=== PATIENT | male | born 1945 | race Caucasian/White ===

== ENCOUNTER → 2016-08-30 | Outpatient (CLI) | payer OTHER ==
[~2016-08-30] MED LIST: GLIP5TAB3 PO; METF-383 PO
[2016-08-30 09:36] LABS: MEAN CELL VOLUME 88.9 fL (80-100); MEAN CORPUSCULAR HEMOGLOBIN 31.3 pg (25-34); MEAN CORPUSCULAR HGB CONC 35.3 g/dl (32-36); MEAN PLATELET VOLUME 10.1 fL (7.4-10.4); PLATELET COUNT 184 K/uL (130-400)
[2016-08-30 10:12] LABS: ALT/SGPT 25 U/L (12-78); BLOOD UREA NITROGEN 26 mg/dl (7-18); CALCIUM 8.8 mg/dl (8.5-10.1); CARBON DIOXIDE 26 mmol/L (21-32); CHLORIDE 97 mmol/L (98-107); CHOLESTEROL 152 mg/dl (0-200); ESTIMATED AVERAGE GLUCOSE 232 mg/dl; GLUCOSE 183 mg/dl (70-99); HA1C FLAG Normal (Normal); POTASSIUM 3.9 mmol/L (3.5-5.1); SODIUM 133 mmol/L (136-145)
[2016-08-30 10:22] LABS: ALKALINE PHOSPHATASE 55 U/L (45-117); AST/SGOT 23 U/L (15-37); CHOLESTEROL/HDL RATIO 4.8; HDL CHOLESTEROL 32 mg/dl; LDL CHOLESTEROL CALCULATED 81 mg/dl; PROSTATE SPECIFIC ANTIGEN 0.344 ng/ml (0.000-4.000); TRIGLYCERIDES 196 mg/dl (0-150); VERY LOW DENSITY LIPOPROT CALC 39 mg/dl
== END | disposition home or self-care (01) ==
LOC: C.LAB 08:47
DX: E11.9 Type 2 diabetes mellitus without complications (principal); E78.5 Hyperlipidemia, unspecified; Z12.5 Encounter for screening for malignant neoplasm of prostate; R53.83 Other fatigue

== ENCOUNTER 2018-01-30 02:40 | Inpatient (IN) | payer OTHER ==
[~2018-01-30] VITALS: Ht 172.7 cm; Wt 78.1 kg
[2018-01-30] MEDS ORDERED: CEFTRIAXONE SOD INJ 1 GM ADDVIAL IV STA (03:12)
[2018-01-30 04:08] LABS: BASO % 0.3 %; BASO ABS # 0.03 K/uL (0-0.2); EOS % 0.7 %; EOS ABS # 0.08 K/uL (0-0.5); HEMATOCRIT 41.2 % (42-52); HEMOGLOBIN 14.8 g/dL (14.0-18.0); IG# 0.03 K/uL (0.00-0.02); LYMPH % 10.6 %; LYMPH ABS # 1.27 K/uL (1.2-3.4); MEAN CELL VOLUME 89.8 fL (80-100); MEAN CORPUSCULAR HEMOGLOBIN 32.2 pg (25-34); MEAN CORPUSCULAR HGB CONC 35.9 g/dl (32-36); MEAN PLATELET VOLUME 10.7 fL (7.4-10.4); MONO % 7.3 %; MONO ABS # 0.88 K/uL (0.11-0.59); NEUT % 80.8 %; NEUT ABS # 9.69 K/uL (1.4-6.5); PLATELET COUNT 176 K/uL (130-400); RED CELL DISTRIBUTION WIDTH CV 12.1 % (11.5-14.5); RED CELL DISTRIBUTION WIDTH SD 39.1 fL (36.4-46.3); WHITE BLOOD COUNT 11.98 K/uL (4.8-10.8)
[2018-01-30] MEDS ORDERED: VANCOMYCIN IV 1,000 MG in SODIUM CHLORIDE 0.9% 250ML 250 ML IV STA (04:17)
[2018-01-30] MEDS ORDERED: VANCOMYCIN CONSULT ACTIVE PRN ×2 (04:30→05:15)
[2018-01-30 04:32] LABS: ALBUMIN 3.7 gm/dl (3.4-5.0); CALCIUM 8.8 mg/dl (8.5-10.1); CREATININE 1.29 mg/dl (0.60-1.40); POTASSIUM 3.9 mmol/L (3.5-5.1); TOTAL PROTEIN 8.1 gm/dl (6.4-8.2)
--- NOTE | 2018-01-30 04:43 | EMERGENCY ROOM VISIT NOTE ---
ED Visit Note First contact with patient: 02:56 I saw this patient in conjunction with Hank Conner PA-C. I agree with his decision making and treatment plan.
[2018-01-30] MEDS ORDERED: SODIUM CHLORIDE 0.9% 1000ML 1,000 ML IV ONE (04:45)
[2018-01-30] MEDS ORDERED: ONDANSETRON INJ 2 MG/ML 2 ML VIAL IV PRN (05:15)
[2018-01-30] MEDS ORDERED: POLYETHYLENE (MIRALAX) 17 GM PACK PO PRN (05:15)
[2018-01-30] MEDS ORDERED: ACETAMINOPHEN 325 MG TAB PO PRN (05:15)
[2018-01-30] MEDS ORDERED: VANCOMYCIN IV 1,000 MG in SODIUM CHLORIDE 0.9% 250ML 250 ML IV SCH (05:15)
[2018-01-30] MEDS ORDERED: ALUMINUM/MAGNESIUM/SIMETH (MAALOX MAX) 30 ML UDC PO PRN (05:15)
[2018-01-30] MEDS ORDERED: VANCOMYCIN 1GM ED/ASU OMNICELL ONE (05:22)
[2018-01-30] MEDS ORDERED: ACETAMINOPHEN 325 MG TAB ONE (05:30)
[2018-01-30] MEDS ORDERED: CARBOHYDRATES FOR HYPOGLYCEMIA PO PRN (06:00)
[2018-01-30] MEDS ORDERED: DEXTROSE 50% 50 ML SYR IV PRN (06:00)
[2018-01-30] MEDS ORDERED: GLUCOSE 40% GEL 15 GM TUBE PO PRN (06:00)
[2018-01-30] MEDS ORDERED: GLUCAGON FOR INJ 1 MG VIAL IM PRN (06:00)
[2018-01-30] MEDS ORDERED: GLUCOSE 10 TABS/TUBE PO PRN (06:00)
[2018-01-30 06:10] VITALS: BP 165/81; PULSE 70; TEMP 36.7; O2SAT 99; BMI 26.2
--- NOTE | 2018-01-30 06:26 | HISTORY & PHYSICAL EXAMINATION ---
DATE OF ADMISSION: 01/30/2018 CHIEF COMPLAINT: Right foot cellulitis. HISTORY OF PRESENT ILLNESS: This is a 72-year-old male with past medical history significant for type 2 diabetes, comes because of right foot cellulitis. The patient just drove from [place] on Friday. After he came in he noticed some erythema in his second toe region extending to his dorsal aspect of his right foot. He went and saw his family doctor and was prescribed Keflex. He took a couple of doses, but the erythema was increasing in size and is spreading, so he came to the ER. Denies any fever, chills. Resting comfortably, hemodynamically stable. Denies any headaches, no blurred vision, no dizziness, no earache, no runny nose, no sore throat, no difficulty swallowing. No cough, no fever, no chills, no shortness of breath, no chest pain, no nausea, no vomiting, no abdominal pain. Normal bowel and bladder movements. Appetite is okay. Having lot of pain in his right foot region and is limping while walking. ALLERGIES: No known drug allergies. PAST MEDICAL HISTORY: As mentioned above. PAST SURGICAL HISTORY: Colonoscopy. MEDICATIONS: The patient is on Keflex 500 mg b.i.d., glipizide 10 mg b.i.d., metformin 850 mg p.o. b.i.d., aspirin 81 mg p.o. daily. FAMILY HISTORY: No family history on file. SOCIAL HISTORY: . No smoking history. No alcohol history. No drug abuse. REVIEW OF SYMPTOMS: As per HPI. Rest of review of symptoms negative. PHYSICAL EXAMINATION: GENERAL: Patient is of moderate built, not in distress. VITAL SIGNS: Temperature 36.4, pulse 64, respiratory rate 18, blood pressure 172/100, oxygen 98% on room air. HEENT: No pallor, no icterus. Pupils equal, round, reactive to light. NECK: No JVD, no neck masses, no carotid bruits. CARDIOVASCULAR: S1, S2 heard, regular rate and rhythm, no murmur, no gallop. RESPIRATORY SYSTEM: Clear to auscultation bilaterally. No wheezing, no crackles. ABDOMEN: Soft, bowel sounds present. Nontender. No distention. CENTRAL NERVOUS SYSTEM: Cranial nerves II-XII grossly intact. Nonfocal. EXTREMITIES: Right foot erythema seen extending from the right second toe to dorsal aspect of the foot. LABORATORY DATA: Sodium 135, potassium 3.9, chloride 103, bicarb 25, BUN 21, creatinine 1.2, serum glucose 289. Point of care lactic acid 2.7, calcium 8.8, total bilirubin 0.2, AST 19, ALT 23, alkaline phosphatase 69. WBC 11.9, hemoglobin 14.8, hematocrit 41.2, platelets 176. Foot x-ray pending. ASSESSMENT AND PLAN: This is a 72-year-old male who presents with right foot cellulitis. 1. Right foot cellulitis. Received couple of dose of Keflex, but the erythema is spreading. Recently traveled from [place]. We will start an IV vancomycin and follow the response.Will consider add gm negative coverage if no improvement Also follow the foot x-ray. Point of care lactic acid is 2.7. Will follow Repeat the lactic acid and follow results. Gentle fluids. Monitor in the medical floor. 2. Diabetes. Hold home medication of glipizide and metformin, placed in insulin sliding scale and follow HbA1c levels. 3. Hypertension, possible situational. We will monitor. 4. Deep venous thrombosis prophylaxis, Lovenox. DISPOSITION: Admit to medical floor. Expect discharge home and follow up with his family doctor. Level 1 full code. MTDD
[2018-01-30] MEDS ORDERED: PNEUMOCOCCAL POLYSACCHARIDES 25 MCG/0.5 ML VIAL/SYR IM. ONE (07:00)
[2018-01-30] MEDS ORDERED: PNEUMOCOCCAL ADMINISTRATION CHARGE ONE (07:00)
[2018-01-30] MEDS ORDERED: SODIUM CHLORIDE 0.9% 1000ML 1,000 ML IV SCH (07:00)
--- NOTE | 2018-01-30 07:41 | DIAGNOSTIC IMAGING REPORT ---
RIGHT FOOT 3 VIEWS HISTORY: right 2nd toe infection into foot COMPARISON: None. FINDINGS: There is no fracture or dislocation. Mild soft tissue swelling within the first and second toes. No underlying bony destruction to suggest osteomyelitis. No radiopaque foreign bodies. IMPRESSION: Mild soft tissue swelling within the first and second toes. No underlying bony abnormality. Electronically signed by: Oscar Montaño M.D. 01/30/2018 7:39 AM Dictated Date/Time: 01/30/2018 7:38 AM
[2018-01-30 07:56] VITALS: BP 160/90; PULSE 66; TEMP 36.9; O2SAT 98
[2018-01-30] MEDS ORDERED: ENOXAPARIN 40 MG/0.4 ML SYR SQ SCH (08:00)
[2018-01-30 08:14] LABS: HEMOGLOBIN A1C 9.6 % (4.5-5.6)
[2018-01-30] MEDS: INSULIN ASPART 100 UNITS/ML 3 ML PEN SC SCH ×4 (08:49→20:31)
[2018-01-30] MEDS: INSULIN GLARGINE SOLOSTAR 100 UNITS/ML 3 ML PEN SC SCH (08:50)
[2018-01-30] MEDS: TRAMADOL HCL 50 MG TAB PO PRN ×3 (09:41→21:35)
--- NOTE | 2018-01-30 09:45 | Pharmacy Progress Note ---
Pharmacy Antibiotic Consult Date of Service: Jan 30, 2018. Pharmacy Dosing Scope Pharmacy is consulted to initiate vancomycin IV dosing therapy, order appropriate labs and adjust drug dose/frequency. Subjective The patient is a 72 year old male admitted on Jan 30, 2018 at 05:14. Objective Height (Feet): 5 Height (Inches): 8.00 Weight (Kilograms): 78.100 Lab Results (24hrs): Test 01/30/18 03:35 01/30/18 04:00 01/30/18 07:33 01/30/18 09:30 White Blood Count 11.98 K/uL (4.8-10.8) Red Blood Count 4.59 M/uL (4.7-6.1) Hemoglobin 14.8 g/dL (14.0-18.0) Hematocrit 41.2 % (42-52) Mean Corpuscular Volume 89.8 fL (80-100) Mean Corpuscular Hemoglobin 32.2 pg (25-34) Mean Corpuscular Hemoglobin Concent 35.9 g/dl (32-36) Platelet Count 176 K/uL (130-400) Mean Platelet Volume 10.7 fL (7.4-10.4) Neutrophils (%) (Auto) 80.8 % Lymphocytes (%) (Auto) 10.6 % Monocytes (%) (Auto) 7.3 % Eosinophils (%) (Auto) 0.7 % Basophils (%) (Auto) 0.3 % Neutrophils # (Auto) 9.69 K/uL (1.4-6.5) Lymphocytes # (Auto) 1.27 K/uL (1.2-3.4) Monocytes # (Auto) 0.88 K/uL (0.11-0.59) Eosinophils # (Auto) 0.08 K/uL (0-0.5) Basophils # (Auto) 0.03 K/uL (0-0.2) RDW Standard Deviation 39.1 fL (36.4-46.3) RDW Coefficient of Variation 12.1 % (11.5-14.5) Immature Granulocyte % (Auto) 0.3 % Immature Granulocyte # (Auto) 0.03 K/uL (0.00-0.02) Prothrombin Time 10.0 SECONDS (9.0-12.0) Prothromb Time International Ratio 1.0 (0.9-1.1) Sodium Level 135 mmol/L (136-145) Potassium Level 3.9 mmol/L (3.5-5.1) Chloride Level 103 mmol/L (98-107) Carbon Dioxide Level 25 mmol/L (21-32) Anion Gap 7.0 mmol/L (3-11) Blood Urea Nitrogen 21 mg/dl (7-18) Creatinine 1.29 mg/dl (0.60-1.40) Est Creatinine Clear Calc Drug Dose 50.8 ml/min Estimated GFR () 64.2 Estimated GFR (Non- 55.4 BUN/Creatinine Ratio 16.6 (10-20) Random Glucose 289 mg/dl (70-99) Estimated Average Glucose 229 mg/dl Hemoglobin A1c 9.6 % (4.5-5.6) Calcium Level 8.8 mg/dl (8.5-10.1) Total Bilirubin 0.2 mg/dl (0.2-1) Aspartate Amino Transf (AST/SGOT) 19 U/L (15-37) Alanine Aminotransferase (ALT/SGPT) 23 U/L (12-78) Alkaline Phosphatase 69 U/L (45-117) Total Protein 8.1 gm/dl (6.4-8.2) Albumin 3.7 gm/dl (3.4-5.0) Globulin 4.4 gm/dl (2.5-4.0) Albumin/Globulin Ratio 0.8 (0.9-2) Chemistry Specimen Hemolysis Bedside Lactic Acid Venous 2.79 mmol/L (0.90-1.70) Bedside Glucose 234 mg/dl (70-99) Micro Results: Item Value Date Time Blood Culture Received 01/30/18334 Blood Pending Blood Culture Received 01/30/18334 Blood Pending Assessment & Plan Patient started on vancomycin for right foot cellulitis. Previously on keflex prior to admission, but erythema is spreading. Blood cultures x 2 are pending. Vancomycin: * 1 gm iv (~13 mg/kg) given this am * Will start maintenance dose of vancomycin 1250 mg (~16 mg/kg) iv q 18 hrs to achieve an estimated trough ~15 mcg/ml (goal for cellulitis) * Will start maintenance dose of vancomycin early due to no loading dose given - will start maintenance when estimated level closer to ~15 mcg/ml * Estimated kinetics: t1/2~14 hrs, ke~0.04 hr-1, CrCl ~50 ml/min * Will plan to obtain a trough prior to the 1800 dose on 02/01 to ensure therapeutic * Per physician note, will consider adding gm negative coverage if no improvement seen Pharmacy will continue to follow and will adjust dose/frequency as necessary. Thank you
[2018-01-30] MEDS: VANCOMYCIN IV 1,250 MG in SODIUM CHLORIDE 0.9% 250ML 250 ML IV SCH (12:28)
[2018-01-30 14:31] VITALS: Ht 172.7 cm; Wt 78.1 kg
[2018-01-30 15:23] VITALS: BP 147/79; PULSE 75; TEMP 37.9; O2SAT 99
--- NOTE | 2018-01-30 18:34 | Progress Note ---
Internal Med Progress Note Date of Service: Jan 30, 2018. Provider Documentation: SUBJECTIVE: No complaint of fever chills, Has minimum pain on the right foot OBJECTIVE: Vital Signs-as noted below Exam: General-no sign of distress, Eyes-sclera nonicteric, pupils bilateral equal reactive to light extraocular muscle intact ENT-moist oral mucosa Neck-neck supple, no thyromegaly no carotid bruit Lungs-clear to auscultate, no wheeze or Heart-regular S1 and S2 no murmur Abdomen-soft nontender no organ Extremities-Right foot erythema seen extending from the right second toe to dorsal aspect of the foot. + warmths and tenderness + dorsalis pedis pulse Neuro-no focal neurological deficit Lab data as noted below. ASSESSMENT & PLAN: RIGHT FOOT CELLULITIS possible source of infection - corn on rt second toe /pt has been scratching it for sometime initially started as pain and redness at the web space between Ist and 2 toe which progressed to painful swelling of rt dorsal foot with extension lower leg below knee no open wound to obtain culture specimen Failed outpatient treatment with oral Keflex redness and swelling has improved after starting on Iv Vancomycin ID eval requested X-ray of foot shows no evidence of osteomyelitis initial elevation of Lactic acid was due to rt foot cellulitis /infection lactic acid level normalized after IV hydration no evidence of sepsis TYPE 2 DIABETES Poorly controlled hemoglobin A1c 9 Hold oral diabetic medication/glipizide and metformin BSG elevated due to infection > 293 adjusted SSI and Basal Lantus dose pharmacy consulted for glycemic management staff development educator consulted HYPONATREMIA : possible due to infection /dehydration cont IVF NSS @ 100 ml /hr follow PRP CODE STATUS: Full code DVT PROPHYLAXIS low risk pt is active at baseline SCD and teds not ordered for rt foot cellulitis DISPOSITION Discharge home when medically stable Medicine follow-up with Dr. Teresa Ferrari Vital Signs: Date Time Temp Pulse Resp B/P (MAP) Pulse Ox O2 Delivery O2 Flow Rate FiO2 01/30/18 16:00 Room Air 01/30/18 15:23 37.9 75 18 147/79 (101) 99 Room Air 01/30/18 12:00 Room Air 01/30/18 07:56 36.9 66 18 160/90 (113) 98 Room Air 01/30/18 06:10 36.7 70 18 165/81 99 Room Air 01/30/18 05:35 36.4 89 18 170/89 98 01/30/18 05:27 89 18 170/89 01/30/18 02:45 36.4 64 18 172/100 98 Room Air Lab Results: Results Past 24 Hours Test 01/30/18 03:35 01/30/18 04:00 01/30/18 07:33 01/30/18 09:51 Range/Units White Blood Count 11.98 4.8-10.8 K/uL Red Blood Count 4.59 4.7-6.1 M/uL Hemoglobin 14.8 14.0-18.0 g/dL Hematocrit 41.2 42-52 % Mean Corpuscular Volume 89.8 80-100 fL Mean Corpuscular Hemoglobin 32.2 25-34 pg Mean Corpuscular Hemoglobin Concent 35.9 32-36 g/dl Platelet Count 176 130-400 K/uL Mean Platelet Volume 10.7 7.4-10.4 fL Neutrophils (%) (Auto) 80.8 % Lymphocytes (%) (Auto) 10.6 % Monocytes (%) (Auto) 7.3 % Eosinophils (%) (Auto) 0.7 % Basophils (%) (Auto) 0.3 % Neutrophils # (Auto) 9.69 1.4-6.5 K/uL Lymphocytes # (Auto) 1.27 1.2-3.4 K/uL Monocytes # (Auto) 0.88 0.11-0.59 K/uL Eosinophils # (Auto) 0.08 0-0.5 K/uL Basophils # (Auto) 0.03 0-0.2 K/uL RDW Standard Deviation 39.1 36.4-46.3 fL RDW Coefficient of Variation 12.1 11.5-14.5 % Immature Granulocyte % (Auto) 0.3 % Immature Granulocyte # (Auto) 0.03 0.00-0.02 K/uL Prothrombin Time 10.0 9.0-12.0 SECONDS Prothromb Time International Ratio 1.0 0.9-1.1 Sodium Level 135 136-145 mmol/L Potassium Level 3.9 3.5-5.1 mmol/L Chloride Level 103 98-107 mmol/L Carbon Dioxide Level 25 21-32 mmol/L Anion Gap 7.0 3-11 mmol/L Blood Urea Nitrogen 21 7-18 mg/dl Creatinine 1.29 0.60-1.40 mg/dl Est Creatinine Clear Calc Drug Dose 50.8 ml/min Estimated GFR () 64.2 Estimated GFR (Non- 55.4 BUN/Creatinine Ratio 16.6 10-20 Random Glucose 289 70-99 mg/dl Estimated Average Glucose 229 mg/dl Hemoglobin A1c 9.6 4.5-5.6 % Calcium Level 8.8 8.5-10.1 mg/dl Total Bilirubin 0.2 0.2-1 mg/dl Aspartate Amino Transf (AST/SGOT) 19 15-37 U/L Alanine Aminotransferase (ALT/SGPT) 23 12-78 U/L Alkaline Phosphatase 69 45-117 U/L Total Protein 8.1 6.4-8.2 gm/dl Albumin 3.7 3.4-5.0 gm/dl Globulin 4.4 2.5-4.0 gm/dl Albumin/Globulin Ratio 0.8 0.9-2 Chemistry Specimen Hemolysis Bedside Lactic Acid Venous 2.79 0.90-1.70 mmol/L Bedside Glucose 234 70-99 mg/dl Lactic Acid Level 3.0 0.4-2.0 mmol/L Test 01/30/18 12:03 01/30/18 17:05 01/30/18 20:19 01/30/18 20:34 Range/Units Bedside Glucose 208 169 293 70-99 mg/dl Lactic Acid Level 1.2 0.4-2.0 mmol/L Microbiology Results 01/30/18 Blood Culture, Received Pending 01/30/18 Blood Culture, Received Pending
[2018-01-30] MEDS ORDERED: CLONIDINE HCL 0.1 MG TAB PO PRN (19:30)
[2018-01-30 22:19] VITALS: BP 134/75; PULSE 60; TEMP 37.1; O2SAT 97
[2018-01-30] MEDS: SODIUM CHLORIDE 0.9% 1000ML 1,000 ML IV SCH (22:41)
--- NOTE | 2018-01-31 05:59 | EMERGENCY ROOM VISIT NOTE ---
History First contact with patient: 02:56 Chief Complaint: TOE PAIN, INJURY Stated Complaint: CELLULITIS History of Present Illness The patient is a 72 year old male who presents to the Emergency Room with complaints of pain and swelling to his right second toe. The patient states this has been worsening rather rapidly over the past 48 hours. He initially noticed some discomfort as he was driving home from a vacation in [facility]. The patient states that he started with a very small area of redness that has began to spread from the toe into his foot, and up his leg. The patient is diabetic on oral medication. He has pain with movement of his foot, and discomfort with walking. He does not recall distinct injury or trauma. He has not had a fever. He went to his primary care physician office about 12 hours ago and was placed on Keflex. He has taken 2 doses of the medication, and despite this his symptoms continue to worsen. He rates his current discomfort a 7/10. He does not identify aggravating or alleviating factors otherwise. Review of Systems More than 10 systems were reviewed and otherwise negative with the exception of history of present illness. Past Medical/Surgical History Medical Problems: (1) Cellulitis Family History No pertinent family history Social History Smoking Status: Never Smoker Housing Status: lives with family Current/Historical Medications Scheduled Glipizide (Glucotrol), 2.5 MG PO BID Metformin Hcl (Glucophage), 850 MG PO BID Physical Exam Vital Signs Date Time Temp Pulse Resp B/P (MAP) Pulse Ox O2 Delivery O2 Flow Rate FiO2 18 02:45 36.4 64 18 172/100 98 Room Air Physical Exam VITALS: Vitals are noted on the nurse's note and reviewed by myself. Vital signs stable. GENERAL: Well-developed, well-nourished, white male, who is in no acute distress and resting comfortably. Patient is cooperative with the examination. HEART: Regular rate and rhythm without murmurs gallops or rubs. LUNGS: Clear to auscultation bilaterally without wheezes, rales or rhonchi. No retractions or accessory muscle use. MUSCULOSKELETAL: There appears to be an area of cellulitis extending from the medial aspect of the right second toe into the foot. There is some extending lymphangitic streaking into the left side mid calf. On the right second toe itself there is a distal medial as well as a proximal lateral corn that appear to be quite irritated and may be a source for the presumed infection. There does not appear to be obvious ulceration or foreign body. The toe and foot are tender. There is no purulence for culture. NEURO: Patient was alert and oriented to person place and time. CN II through XII grossly intact. No focal neurological deficits. Medical Decision & Procedures ER Provider Diagnostic Interpretation: RIGHT FOOT 3 VIEWS HISTORY: right 2nd toe infection into foot COMPARISON: None. FINDINGS: There is no fracture or dislocation. Mild soft tissue swelling within the first and second toes. No underlying bony destruction to suggest osteomyelitis. No radiopaque foreign bodies. IMPRESSION: Mild soft tissue swelling within the first and second toes. No underlying bony abnormality. Laboratory Results Test 01/30/18 03:35 01/30/18 04:00 RDW Standard Deviation 39.1 fL (36.4-46.3) RDW Coefficient of Variation 12.1 % (11.5-14.5) White Blood Count 11.98 K/uL (4.8-10.8) Red Blood Count 4.59 M/uL (4.7-6.1) Hemoglobin 14.8 g/dL (14.0-18.0) Hematocrit 41.2 % (42-52) Mean Corpuscular Volume 89.8 fL (80-100) Mean Corpuscular Hemoglobin 32.2 pg (25-34) Mean Corpuscular Hemoglobin Concent 35.9 g/dl (32-36) Platelet Count 176 K/uL (130-400) Mean Platelet Volume 10.7 fL (7.4-10.4) Neutrophils (%) (Auto) 80.8 % Lymphocytes (%) (Auto) 10.6 % Monocytes (%) (Auto) 7.3 % Eosinophils (%) (Auto) 0.7 % Basophils (%) (Auto) 0.3 % Neutrophils # (Auto) 9.69 K/uL (1.4-6.5) Lymphocytes # (Auto) 1.27 K/uL (1.2-3.4) Monocytes # (Auto) 0.88 K/uL (0.11-0.59) Eosinophils # (Auto) 0.08 K/uL (0-0.5) Basophils # (Auto) 0.03 K/uL (0-0.2) Immature Granulocyte % (Auto) 0.3 % Immature Granulocyte # (Auto) 0.03 K/uL (0.00-0.02) Prothrombin Time 10.0 SECONDS (9.0-12.0) Prothromb Time International Ratio 1.0 (0.9-1.1) Est Creatinine Clear Calc Drug Dose 50.8 ml/min Estimated Average Glucose 229 mg/dl Hemoglobin A1c 9.6 % (4.5-5.6) Total Bilirubin 0.2 mg/dl (0.2-1) Aspartate Amino Transf (AST/SGOT) 19 U/L (15-37) Alanine Aminotransferase (ALT/SGPT) 23 U/L (12-78) Alkaline Phosphatase 69 U/L (45-117) Total Protein 8.1 gm/dl (6.4-8.2) Albumin 3.7 gm/dl (3.4-5.0) Globulin 4.4 gm/dl (2.5-4.0) Albumin/Globulin Ratio 0.8 (0.9-2) Chemistry Specimen Hemolysis Bedside Lactic Acid Venous 2.79 mmol/L (0.90-1.70) Medications Administered Medications (Trade) Dose Ordered Sig/Liz Route Start Time Stop Time Status Last Admin Dose Admin Ceftriaxone Sodium (Rocephin Inj) 1 gm NOW STAT IV 01/30/18 03:12 01/30/18 03:13 DC 01/30/18 03:42 1 GM Vancomycin HCl 1000 mg/Sodium Chloride 270 ml @ 125 mls/hr NOW STAT IV 01/30/18 04:17 01/30/18 06:26 DC 01/30/18 05:26 125 MLS/HR Sodium Chloride 1,000 ml @ 999 mls/hr Q1H1M ONCE IV 01/30/18 04:45 01/30/18 05:45 DC 01/30/18 05:01 999 MLS/HR ED Course Physical exam and history were performed. Nursing notes, EMR, and Medication List were personally reviewed. Patient appears to have a cellulitis of his right second toe. The patient is diabetic. There is concern as there is some streaking coming proximally. IV access was established and labs were obtained. The patient was started with a dose of IV Rocephin as he is currently on. X-rays were obtained. Blood cultures and lactic acid were gathered. The patient's blood work is as above and was reviewed. He does have a very mildly elevated white blood cell count. There is no gross anemia or significant electrolyte imbalance. The patient's sugar is elevated at nearly 300 his pulse-kw-oowk lactic acid is 2.7, and there is concern this may represent sepsis. His x-ray was reviewed by myself and radiology showing no acute fracture or dislocation. There does not appear to be signs of osteomyelitis. I discussed the findings with the patient, and will start him on vancomycin for the cellulitis and possible sepsis. He does not appear well for discharge home based on his findings. The case was discussed with the on-call hospitalist, who agreed to evaluate the patient here in the department. Please see their dictation for further patient course, plan, and disposition. The chart was completed utilizing [employer] Speech Voice Recognition Software. Grammatical errors, random word insertions, pronoun errors, and incomplete sentences are an occasional consequence of this system due to software limitations, ambient noise, and hardware issues. Any formal questions or concerns about the content, text, or information contained within the body of this dictation should be directly addressed to the provider for clarification. . Medical Decision Differential diagnosis: Etiologies such as cellulitis, abscess, MRSA infection, DVT, necrotizing fasciitis, dermatitis, drug eruption, as well as others were entertained.. Impression Primary Impression: Cellulitis Additional Impression: Diabetes Departure Information Dispostion Admitted as an inpatient Condition GOOD Referrals Joe Poole MD (PCP) Forms WORK / SCHOOL INSTRUCTIONS, HOME CARE DOCUMENTATION FORM, IMPORTANT VISIT INFORMATION Patient Instructions [facility] Problem Qualifiers Primary Impression: Cellulitis Site of cellulitis: extremity Site of cellulitis of extremity: toe Laterality: right Qualified Codes: L03.031 - Cellulitis of right toe Additional Impression: Diabetes Diabetes mellitus type: type 2 Diabetes mellitus ferry terminal agent insulin use: without ferry terminal agent use Diabetes mellitus complication status: with unspecified complications Qualified Codes: E11.8 - Type 2 diabetes mellitus with unspecified complications
[2018-01-31] MEDS: VANCOMYCIN IV 1,250 MG in SODIUM CHLORIDE 0.9% 250ML 250 ML IV SCH (06:14)
[2018-01-31] MEDS: TRAMADOL HCL 50 MG TAB PO PRN ×3 (06:15→18:44)
[2018-01-31 07:32] LABS: BASO % 0.5 %; BASO ABS # 0.03 K/uL (0-0.2); EOS ABS # 0.06 K/uL (0-0.5); HEMATOCRIT 37.5 % (42-52); HEMOGLOBIN 13.2 g/dL (14.0-18.0); IG# 0.01 K/uL (0.00-0.02); LYMPH % 23.9 %; MEAN CELL VOLUME 89.9 fL (80-100); MEAN CORPUSCULAR HEMOGLOBIN 31.7 pg (25-34); MEAN CORPUSCULAR HGB CONC 35.2 g/dl (32-36); MEAN PLATELET VOLUME 10.5 fL (7.4-10.4); MONO % 10.5 %; MONO ABS # 0.66 K/uL (0.11-0.59); NEUT % 63.9 %; NEUT ABS # 4.02 K/uL (1.4-6.5); PLATELET COUNT 158 K/uL (130-400); RED CELL DISTRIBUTION WIDTH CV 12.2 % (11.5-14.5); RED CELL DISTRIBUTION WIDTH SD 39.8 fL (36.4-46.3); WHITE BLOOD COUNT 6.28 K/uL (4.8-10.8)
[2018-01-31 08:01] LABS: CALCIUM 7.9 mg/dl (8.5-10.1); CREATININE 1.23 mg/dl (0.60-1.40); POTASSIUM 3.8 mmol/L (3.5-5.1)
[2018-01-31 08:09] VITALS: BP 132/73; PULSE 61; TEMP 36.7; O2SAT 98
[2018-01-31 08:15] VITALS: O2SAT 98
[2018-01-31] MEDS: INSULIN ASPART 100 UNITS/ML 3 ML PEN SC SCH ×4 (08:38→20:49)
[2018-01-31] MEDS: INSULIN GLARGINE SOLOSTAR 100 UNITS/ML 3 ML PEN SC SCH (08:39)
[2018-01-31] MEDS: SODIUM CHLORIDE 0.9% 1000ML 1,000 ML IV SCH ×2 (10:45→18:44)
--- NOTE | 2018-01-31 14:18 | Medical Consult ---
Consultation Date of Consultation: Jan 31, 2018. Attending Physician: Angela Lorenzo M.D. Reason for Consultation: Right foot cellulitis/failed outpatient treatment History of Present Illness 72-year-old male with diabetes mellitus, otherwise in good health was well until several days prior to admission when while driving back from [place] he noted pain between his great and second toe of his right foot. He subsequently developed increasing pain and swelling along with erythema, but not associated with fever, chills, or other systemic complaints. He saw his physician who prescribed cephalexin but he only took 2 doses and symptoms worsened and erythema started to progress up his leg, and so he came to the emergency department and was admitted for further management. He was started on IV vancomycin and his noted improvement over the last 12 hours with some resolution of the erythema and decrease in swelling. Remains afebrile. Tolerating vancomycin without apparent difficulty. Blood cultures are negative to date. Pain in his right foot currently 2 out of 10 in intensity. Past Medical/Surgical History Past medical history: Diabetes mellitus Past surgical history: Colonoscopy Family History Noncontributory Social History Smoking Status: Never Smoker Housing Status: lives with family Allergies Coded Allergies: No Known Allergies (Unverified , 01/30/18) Current Inpatient Medications Current Inpatient Medications Medications (Trade) Dose Ordered Sig/Liz Route Start Time Stop Time Status Last Admin Dose Admin Acetaminophen (Tylenol Tab) 650 mg Q4H PRN PO 01/30/18 05:15 03/01/18 05:14 Al Hydrox/Mg Hydrox/Simethicone (Maalox Max Susp) 15 ml Q4H PRN PO 01/30/18 05:15 03/01/18 05:14 Polyethylene (Miralax Powder Packet) 17 gm DAILY PRN PO 01/30/18 05:15 03/01/18 05:14 Ondansetron HCl (Zofran Inj) 4 mg Q6H PRN IV 01/30/18 05:15 03/01/18 05:14 Insulin Aspart (novoLOG ASPART) SLIDING SCALE G... ACHS SC 01/30/18 06:30 03/01/18 06:59 01/31/18 13:21 10 UNITS Insulin Glargine (Lantus Solostar Pen) 5 units DAILY SC 01/30/18 08:00 03/01/18 08:59 01/31/18 08:39 5 UNITS Vancomycin HCl (Consult) 1 ea UD PRN N/A 01/30/18 05:15 03/01/18 05:14 Glucose (Glucose 40% Gel) 15-30 GRAMS 15 GRAMS... UD PRN PO 01/30/18 06:00 03/01/18 05:59 Glucose (Glucose Chew Tab) 4-8 Tablets 4 Tabl... UD PRN PO 01/30/18 06:00 03/01/18 05:59 Dextrose (Dextrose 50% 50ML Syringe) 25-50ML 25ML FOR ... UD PRN IV 01/30/18 06:00 03/01/18 05:59 Glucagon (Glucagon Inj) 1 mg UD PRN IM 01/30/18 06:00 03/01/18 05:59 Carbohydrates (Carbohydrates For Hypoglycemia) 15-30 GRAMS 15 grams if BSG 54-69... UD PRN PO 01/30/18 06:00 03/01/18 05:59 Vancomycin HCl 1250 mg/Sodium Chloride 275 ml @ 125 mls/hr Q18H IV 01/30/18 12:00 02/09/18 11:59 01/31/18 06:14 125 MLS/HR Tramadol HCl (Ultram Tab) 50 mg Q4H PRN PO 01/30/18 09:15 03/01/18 09:14 01/31/18 13:27 50 MG Clonidine HCl (Catapres Tab) 0.1 mg Q8 PRN PO 01/30/18 19:30 03/01/18 19:29 Sodium Chloride 1,000 ml @ 100 mls/hr Q10H IV 01/30/18 22:15 03/01/18 22:14 01/31/18 10:45 100 MLS/HR Review of Systems All systems were reviewed and are negative except as per HPI Physical Exam Date Time Temp Pulse Resp B/P (MAP) Pulse Ox O2 Delivery O2 Flow Rate FiO2 01/31/18 08:15 98 Room Air 01/31/18 08:09 36.7 61 16 132/73 (92) 98 Room Air 01/31/18 00:40 Room Air 01/30/18 22:19 37.1 60 20 134/75 (94) 97 Room Air 01/30/18 16:00 Room Air 01/30/18 15:23 37.9 75 18 147/79 (364) 99 Room Air General Appearance: WD/WN, no apparent distress Head: normocephalic, atraumatic Eyes: normal inspection, EOMI, sclerae normal ENT: normal ENT inspection, hearing grossly normal, pharynx normal Neck: supple, no adenopathy, thyroid normal, trachea midline Respiratory/Chest: chest non-tender, lungs clear, normal breath sounds, no respiratory distress Cardiovascular: regular rate, rhythm, no gallop, no murmur Abdomen/GI: normal bowel sounds, non tender, soft, no organomegaly Back: normal inspection, no CVA tenderness Extremities/Musculoskelatal: no calf tenderness, normal capillary refill, normal range of motion Neurologic/Psych: alert, oriented x 3 Skin: normal color, warm/dry, no rash, + pertinent finding (Intense erythema with purplish discoloration between great and second toe of the right foot with some erythema on the dorsum of the foot) Laboratory Results RUN DATE: 01/31/18 [facility] LAB PAGE 1 RUN TIME: 746 Specimen Inquiry PATIENT: JULES ESTRADASHABNAM Irby LOC: [facility] U # : [id number] AGE/SX: 72/M ROOM: [facility] REG : 01/30/[address]: Angela Lorenzo M.D. : 1945 BED: 1 DIS : STATUS: ADM IN TLOC: SPEC #: [id number] YOGI: 01/30/18 STATUS: RES REQ #: [id number] RECD: 01/30/[address]: Hank Conner PA- C SOURCE: BLOOD ENTR: 01/30/[address]: Wendie Kuo D.Brooke SPDESC: No Doctor, Assigned ORDERED: BLOOD CULTURE Procedure Result Verified Site BLD CULT Preliminary 01/31/18 NO GROWTH TO DATE. Last 24 Hours Test 01/30/18 17:05 01/30/18 20:19 01/30/18 20:34 01/31/18 07:23 Bedside Glucose 169 mg/dl 293 mg/dl Lactic Acid Level 1.2 mmol/L White Blood Count 6.28 K/uL Red Blood Count 4.17 M/uL Hemoglobin 13.2 g/dL Hematocrit 37.5 % Mean Corpuscular Volume 89.9 fL Mean Corpuscular Hemoglobin 31.7 pg Mean Corpuscular Hemoglobin Concent 35.2 g/dl Platelet Count 158 K/uL Mean Platelet Volume 10.5 fL Neutrophils (%) (Auto) 63.9 % Lymphocytes (%) (Auto) 23.9 % Monocytes (%) (Auto) 10.5 % Eosinophils (%) (Auto) 1.0 % Basophils (%) (Auto) 0.5 % Neutrophils # (Auto) 4.02 K/uL Lymphocytes # (Auto) 1.50 K/uL Monocytes # (Auto) 0.66 K/uL Eosinophils # (Auto) 0.06 K/uL Basophils # (Auto) 0.03 K/uL RDW Standard Deviation 39.8 fL RDW Coefficient of Variation 12.2 % Immature Granulocyte % (Auto) 0.2 % Immature Granulocyte # (Auto) 0.01 K/uL Sodium Level 137 mmol/L Potassium Level 3.8 mmol/L Chloride Level 105 mmol/L Carbon Dioxide Level 25 mmol/L Anion Gap 7.0 mmol/L Blood Urea Nitrogen 15 mg/dl Creatinine 1.23 mg/dl Est Creatinine Clear Calc Drug Dose 53.3 ml/min Estimated GFR () 68.0 Estimated GFR (Non- 58.7 BUN/Creatinine Ratio 12.5 Random Glucose 229 mg/dl Calcium Level 7.9 mg/dl Magnesium Level 1.7 mg/dl Test 01/31/18 07:52 01/31/18 11:56 Bedside Glucose 238 mg/dl 280 mg/dl RIGHT FOOT 3 VIEWS HISTORY: right 2nd toe infection into foot COMPARISON: None. FINDINGS: There is no fracture or dislocation. Mild soft tissue swelling within the first and second toes. No underlying bony destruction to suggest osteomyelitis. No radiopaque foreign bodies. IMPRESSION: Mild soft tissue swelling within the first and second toes. No underlying bony abnormality. Electronically signed by: Oscar Montaño M.D. 01/30/2018 7:39 AM Dictated Date/Time: 01/30/2018 7:38 AM The status of this report is Signed. Draft = Not yet reviewed or approved by Radiologist. Signed = Reviewed and approved by Radiologist. <AttendingPhy>Angela Lorenzo M.D.</AttendingPhy> <FamilyPhy>Joe Poole MD</FamilyPhy> <PrimaryPhy>Joe Poole MD</PrimaryPhy> <UnitNumber> [id number]</UnitNumber> <VisitNumber>[id number]</VisitNumber> <PatientName> JAMES ESTRADA</PatientName> <DateOfBirth>1945</DateOfBirth> <Location >[facility]</Location> <ServiceDate>01/30/18</ServiceDate> <MNE>ESINDI</MNE> < OrderingPhy>Hank Conner PA-C</OrderingPhy> <OrderingPhyMNE>f rep ord dr evangelista</ OrderingPhyMNE> <DictatingPhyMNE>f rep dict dr evangelista</DictatingPhyMNE> <CCListMNE> f rep ct mne</CCListMNE> <AdmittingPhyMNE>f pt admit dr evangelista</AdmittingPhyMNE> < AttendingPhyMNE>f pt attend dr evangelista</AttendingPhyMNE> Assessment & Plan 72-year-old diabetic male with cellulitis of his right foot, clinically responding to IV vancomycin. We will continue vancomycin pending final blood culture results, likely will require only another day or 2 of IV antibiotics. Will follow.
[2018-01-31 15:00] VITALS: BP 99/60; PULSE 65; TEMP 36.7; O2SAT 97
--- NOTE | 2018-01-31 18:20 | Progress Note ---
Internal Med Progress Note Date of Service: Jan 31, 2018. Provider Documentation: SUBJECTIVE: Pain and swelling on right foot much improved No fever chills OBJECTIVE: Vital Signs-as noted below Exam: General-no sign of distress, Eyes-sclera nonicteric, pupils bilateral equal reactive to light extraocular muscle intact ENT-moist oral mucosa Neck-neck supple, no thyromegaly no carotid bruit Lungs-clear to auscultate, no wheeze or Heart-regular S1 and S2 no murmur Abdomen-soft nontender no organ Extremities-Right foot erythema seen extending from the right second toe to dorsal aspect of the foot. + warmths and tenderness + dorsalis pedis pulse Neuro-no focal neurological deficit Lab data as noted below. ASSESSMENT & PLAN: RIGHT FOOT CELLULITIS Clinically improving possible source of infection - corn on rt second toe /pt has been scratching it for sometime initially started as pain and redness at the web space between Ist and 2 toe which progressed to painful swelling of rt dorsal foot with extension lower leg below knee no open wound to obtain culture specimen Failed outpatient treatment with oral Keflex redness and swelling has improved after starting on Iv Vancomycin ID eval requested appreciate input, and continue IV vancomycin for the 2 days Then transition to oral antibiotics to complete total 10-14 days course X-ray of foot shows no evidence of osteomyelitis initial elevation of Lactic acid was due to rt foot cellulitis /infection lactic acid level normalized after IV hydration no evidence of sepsis TYPE 2 DIABETES Poorly controlled hemoglobin A1c 9 Possible causing rapid progression of right foot cellulitis Hold oral diabetic medication/glipizide and metformin BSG elevated due to infection > 293 adjusted SSI and Basal Lantus dose pharmacy consulted for glycemic management inclusion paraeducator consulted Reports of not following diabetic diet, carb count in the past few months Willing for referral at diabetes clinic as an outpatient HYPONATREMIA : Corrected with IV fluids possible due to infection /dehydration CODE STATUS: Full code DVT PROPHYLAXIS low risk pt is active at baseline SCD and teds not ordered for rt foot cellulitis DISPOSITION Discharge home when medically stable Medicine follow-up with Dr. Poole Vital Signs: Date Time Temp Pulse Resp B/P (MAP) Pulse Ox O2 Delivery O2 Flow Rate FiO2 01/31/18 15:00 36.7 65 18 99/60 (73) 97 Room Air 01/31/18 08:15 98 Room Air 01/31/18 08:09 36.7 61 16 132/73 (92) 98 Room Air 01/31/18 00:40 Room Air 01/30/18 22:19 37.1 60 20 134/75 (94) 97 Room Air Lab Results: Results Past 24 Hours Test 01/30/18 20:19 01/30/18 20:34 01/31/18 07:23 01/31/18 07:52 Range/Units Bedside Glucose 293 238 70-99 mg/dl Lactic Acid Level 1.2 0.4-2.0 mmol/L White Blood Count 6.28 4.8-10.8 K/uL Red Blood Count 4.17 4.7-6.1 M/uL Hemoglobin 13.2 14.0-18.0 g/dL Hematocrit 37.5 42-52 % Mean Corpuscular Volume 89.9 80-100 fL Mean Corpuscular Hemoglobin 31.7 25-34 pg Mean Corpuscular Hemoglobin Concent 35.2 32-36 g/dl Platelet Count 158 130-400 K/uL Mean Platelet Volume 10.5 7.4-10.4 fL Neutrophils (%) (Auto) 63.9 % Lymphocytes (%) (Auto) 23.9 % Monocytes (%) (Auto) 10.5 % Eosinophils (%) (Auto) 1.0 % Basophils (%) (Auto) 0.5 % Neutrophils # (Auto) 4.02 1.4-6.5 K/uL Lymphocytes # (Auto) 1.50 1.2-3.4 K/uL Monocytes # (Auto) 0.66 0.11-0.59 K/uL Eosinophils # (Auto) 0.06 0-0.5 K/uL Basophils # (Auto) 0.03 0-0.2 K/uL RDW Standard Deviation 39.8 36.4-46.3 fL RDW Coefficient of Variation 12.2 11.5-14.5 % Immature Granulocyte % (Auto) 0.2 % Immature Granulocyte # (Auto) 0.01 0.00-0.02 K/uL Sodium Level 137 136-145 mmol/L Potassium Level 3.8 3.5-5.1 mmol/L Chloride Level 105 98-107 mmol/L Carbon Dioxide Level 25 21-32 mmol/L Anion Gap 7.0 3-11 mmol/L Blood Urea Nitrogen 15 7-18 mg/dl Creatinine 1.23 0.60-1.40 mg/dl Est Creatinine Clear Calc Drug Dose 53.3 ml/min Estimated GFR () 68.0 Estimated GFR (Non- 58.7 BUN/Creatinine Ratio 12.5 10-20 Random Glucose 229 70-99 mg/dl Calcium Level 7.9 8.5-10.1 mg/dl Magnesium Level 1.7 1.8-2.4 mg/dl Test 01/31/18 11:56 01/31/18 16:54 Range/Units Bedside Glucose 280 164 70-99 mg/dl
[2018-01-31] MEDS: MAGNESIUM OXIDE 400 MG TAB PO SCH (20:46)
[2018-01-31 22:36] VITALS: BP 146/74; PULSE 54; TEMP 36.6; O2SAT 97
[2018-02-01] MEDS: VANCOMYCIN IV 1,250 MG in SODIUM CHLORIDE 0.9% 250ML 250 ML IV SCH ×2 (00:06→18:05)
[2018-02-01] MEDS: TRAMADOL HCL 50 MG TAB PO PRN ×2 (05:17→23:46)
[2018-02-01] MEDS ORDERED: NURSING VERBAL MED ORDER ONE (05:30)
[2018-02-01 06:26] LABS: CREATININE 1.1 mg/dl (0.60-1.40)
[2018-02-01 07:26] VITALS: BP 116/67; PULSE 60; TEMP 36.6; O2SAT 97
[2018-02-01 08:30] VITALS: O2SAT 98
[2018-02-01] MEDS: MAGNESIUM OXIDE 400 MG TAB PO SCH ×2 (08:31→19:36)
[2018-02-01] MEDS: INSULIN ASPART 100 UNITS/ML 3 ML PEN SC SCH ×4 (08:42→20:35)
[2018-02-01] MEDS: INSULIN GLARGINE SOLOSTAR 100 UNITS/ML 3 ML PEN SC SCH (08:43)
[2018-02-01] MEDS: SODIUM CHLORIDE 0.9% 1000ML 1,000 ML IV SCH (09:00)
[2018-02-01] MEDS ORDERED: CLONIDINE HCL 0.1 MG TAB PO PRN (12:00)
[2018-02-01 15:37] VITALS: BP 168/85; PULSE 65; TEMP 35.9; O2SAT 96
--- NOTE | 2018-02-01 15:49 | Progress Note ---
Internal Med Progress Note Date of Service: Feb 01, 2018. Provider Documentation: SUBJECTIVE: Redness/swelling on right lower leg and foot has improved markedly Still have dark/purple color area in the first webspace of right foot between great toe and second toe No fever or chills Denies of any pain Able to ambulate, bear weight without any discomfort OBJECTIVE: Vital Signs-as noted below Exam: General-no sign of distress, Eyes-sclera nonicteric, pupils bilateral equal reactive to light extraocular muscle intact ENT-moist oral mucosa Neck-neck supple, no thyromegaly no carotid bruit Lungs-clear to auscultate, no wheeze or Heart-regular S1 and S2 no murmur Abdomen-soft nontender no organ Extremities-Right foot erythema improved, carpal discoloration between the great toe and second toe, minimum warmth and tenderness much improved from prior + dorsalis pedis pulse Neuro-no focal neurological deficit Lab data as noted below. ASSESSMENT & PLAN: RIGHT FOOT CELLULITIS Clinically improving with IV vancomycin possible source of infection -small skin opening at rt second toe /pt has been scratching it for sometime initially started as pain and redness at the web space between Ist and 2 toe which progressed to painful swelling of rt dorsal foot with extension lower leg below knee no open wound to obtain culture specimen Patient's poorly controlled diabetes/hype glycemia possible cause of poor healing Failed outpatient treatment with oral Keflex redness and swelling has improved after starting on Iv Vancomycin ID eval requested appreciate input, and continue IV vancomycin for next 24 hours Then transition to oral antibiotics to complete total 10 course X-ray of foot shows no evidence of osteomyelitis initial elevation of Lactic acid was due to rt foot cellulitis /infection lactic acid level normalized after IV hydration no evidence of sepsis TYPE 2 DIABETES Poorly controlled hemoglobin A1c 9 Possible causing rapid progression of right foot cellulitis Hold oral diabetic medication/glipizide and metformin BSG elevated due to infection > 293 adjusted SSI and Basal Lantus dose pharmacy consulted for glycemic management consumer educator consulted Reports of not following diabetic diet, carb count in the past few months Willing for referral at diabetes clinic as an outpatient HYPONATREMIA : Corrected with IV fluids possible due to infection /dehydration IV fluids discontinued as patient is having adequate oral intake instructed to drink plenty of CODE STATUS: Full code DVT PROPHYLAXIS low risk pt is active at baseline SCD and teds not ordered for rt foot cellulitis DISPOSITION Discharge home when medically stable Medicine follow-up with Dr. Poole Vital Signs: Date Time Temp Pulse Resp B/P (MAP) Pulse Ox O2 Delivery O2 Flow Rate FiO2 02/02/18 10:43 Room Air 02/02/18 07:34 36.6 64 18 116/72 (87) 98 Room Air 02/01/18 23:10 Room Air 02/01/18 22:50 36.6 56 18 137/75 (95) 97 Room Air 02/01/18 19:45 Room Air Lab Results: Results Past 24 Hours Test 02/01/18 19:56 02/02/18 05:49 02/02/18 07:42 02/02/18 11:34 Range/Units Bedside Glucose 165 202 203 70-99 mg/dl Creatinine 1.24 0.60-1.40 mg/dl Est Creatinine Clear Calc Drug Dose 52.8 ml/min Estimated GFR () 67.4 Estimated GFR (Non- 58.1 Test 02/02/18 16:52 Range/Units Bedside Glucose 180 70-99 mg/dl
[2018-02-01] MEDS ORDERED: VANCOMYCIN TROUGH ONE (17:30)
--- NOTE | 2018-02-01 19:37 | Pharmacy Progress Note ---
Pharmacy Abx Dose Short Note Date of Service Feb 01, 2018. Assessment & Plan Item Value Date Time Vancomycin Level Trough 10.3 mcg/ml 02/01/18 1735 Creatinine 1.10 mg/dl 02/01/18 0526 Creatinine 1.23 mg/dl 01/31/18 0723 Assessment 72 year old male receiving Vancomycin for treatment of cellulitis Day # 3 of antimicrobial therapy of Vanco 1250mg Q18H Plan Vancomycin * Trough level of 10.3 mcg/mL is therapeutic, but may become subtherapeutic at this dose with patient's kidney function improving. * Change to 1250 mg IV every 14 hours * Goal trough level for cellulitis: ~15 mcg/mL * Trough level ordered for: 02/04/18 at 0130 Pharmacy will continue to follow and will adjust dose/frequency as necessary. Thank you.
[2018-02-01 22:50] VITALS: BP 137/75; PULSE 56; TEMP 36.6; O2SAT 97
[2018-02-02 06:39] LABS: CREATININE 1.24 mg/dl (0.60-1.40)
[2018-02-02 07:34] VITALS: BP 116/72; PULSE 64; TEMP 36.6; O2SAT 98
[2018-02-02] MEDS: MAGNESIUM OXIDE 400 MG TAB PO SCH ×2 (07:49→21:07)
[2018-02-02] MEDS ORDERED: VANCOMYCIN IV 1,250 MG in SODIUM CHLORIDE 0.9% 250ML 250 ML IV SCH (08:00)
[2018-02-02] MEDS: INSULIN ASPART 100 UNITS/ML 3 ML PEN SC SCH ×4 (08:00→21:23)
[2018-02-02] MEDS: INSULIN GLARGINE SOLOSTAR 100 UNITS/ML 3 ML PEN SC SCH (08:01)
--- NOTE | 2018-02-02 14:20 | Progress Note ---
Internal Med Progress Note Date of Service: Feb 02, 2018. Provider Documentation: SUBJECTIVE: Right foot cellulitis has markedly improved No erythema or swelling on right lower leg. Minimal erythema on the dorsal foot , Improvement of purple discoloration patient between the webspace of left great toe and second toe No fever Appetite and energy at baseline Ambulating independently in room OBJECTIVE: Vital Signs-as noted below Exam: General-no sign of distress, Eyes-sclera nonicteric, pupils bilateral equal reactive to light extraocular muscle intact ENT-moist oral mucosa Neck-neck supple, no thyromegaly no carotid bruit Lungs-clear to auscultate, no wheeze or Heart-regular S1 and S2 no murmur Abdomen-soft nontender no organ Extremities-improvement of erythema, swelling on right foot. Dark/purple discoloration between left great toe and second toe Dorsalis pedis pulse palpable Neuro-no focal neurological deficit Lab data as noted below. ASSESSMENT & PLAN: RIGHT FOOT CELLULITIS Clinically improving possible source of infection -inner side of rt second toe /pt has been scratching it for sometime initially started as pain and redness at the web space between Ist and 2 toe which progressed to painful swelling of rt dorsal foot with extension lower leg below knee no open wound to obtain culture specimen Failed outpatient treatment with oral Keflex redness and swelling has improved after starting on Iv Vancomycin ID eval requested appreciate input, will DC IV vancomycin Start with p.o. Keflex/doxycycline-total 10 district X-ray of foot shows no evidence of osteomyelitis initial Lactic acid was elevated due to rt foot cellulitis /infection lactic acid level normalized after IV hydration no evidence of sepsis TYPE 2 DIABETES Poorly controlled hemoglobin A1c 9 Possible causing rapid progression of right foot cellulitis Hold oral diabetic medication/glipizide and metformin-will be resumed on discharge BSG elevated due to infection > 293 adjusted SSI and Basal Lantus dose pharmacy consulted for glycemic management special education paraeducator consulted Reports of not following diabetic diet, carb count in the past few months Willing for referral at diabetes clinic as an outpatient HYPONATREMIA : Corrected with IV fluids possible due to infection /dehydration IV fluids discontinued As patient is tolerating oral intake very well Counseled to drink plenty of fluids CODE STATUS: Full code DVT PROPHYLAXIS low risk pt is active at baseline SCD and teds not ordered for rt foot cellulitis DISPOSITION Possible discharge home tomorrow Medicine follow-up with Dr. Poole Patient will need referral to outpatient diabetic clinic for blood sugar/ diabetes management Vital Signs: Date Time Temp Pulse Resp B/P (MAP) Pulse Ox O2 Delivery O2 Flow Rate FiO2 02/02/18 10:43 Room Air 02/02/18 07:34 36.6 64 18 116/72 (87) 98 Room Air 02/01/18 23:10 Room Air 02/01/18 22:50 36.6 56 18 137/75 (95) 97 Room Air 02/01/18 19:45 Room Air Lab Results: Results Past 24 Hours Test 02/01/18 19:56 02/02/18 05:49 02/02/18 07:42 02/02/18 11:34 Range/Units Bedside Glucose 165 202 203 70-99 mg/dl Creatinine 1.24 0.60-1.40 mg/dl Est Creatinine Clear Calc Drug Dose 52.8 ml/min Estimated GFR () 67.4 Estimated GFR (Non- 58.1 Test 02/02/18 16:52 Range/Units Bedside Glucose 180 70-99 mg/dl
--- NOTE | 2018-02-02 15:44 | Infectious Disease Progress Nt ---
Progress Note Date of Service Feb 02, 2018. Subjective Pt evaluation today including: conversation w/ patient, physical exam, chart review, lab review, review of studies, conversation w/ proposal consultant, review of inpatient medication list Patient feeling much better. Erythema and swelling of foot has significantly improved. Remains afebrile. Tolerating antibiotics without apparent difficulty. Blood cultures remain negative. All Other Systems: Reviewed and Negative Medications Current Inpatient Medications Medications (Trade) Dose Ordered Sig/Liz Route Start Time Stop Time Status Last Admin Dose Admin Acetaminophen (Tylenol Tab) 650 mg Q4H PRN PO 01/30/18 05:15 03/01/18 05:14 Al Hydrox/Mg Hydrox/Simethicone (Maalox Max Susp) 15 ml Q4H PRN PO 01/30/18 05:15 03/01/18 05:14 Polyethylene (Miralax Powder Packet) 17 gm DAILY PRN PO 01/30/18 05:15 03/01/18 05:14 Ondansetron HCl (Zofran Inj) 4 mg Q6H PRN IV 01/30/18 05:15 03/01/18 05:14 Insulin Aspart (novoLOG ASPART) SLIDING SCALE G... ACHS SC 01/30/18 06:30 03/01/18 06:59 02/02/18 12:30 6 UNITS Insulin Glargine (Lantus Solostar Pen) 5 units DAILY SC 01/30/18 08:00 03/01/18 08:59 02/02/18 08:01 5 UNITS Vancomycin HCl (Consult) 1 ea UD PRN N/A 01/30/18 05:15 03/01/18 05:14 Glucose (Glucose 40% Gel) 15-30 GRAMS 15 GRAMS... UD PRN PO 01/30/18 06:00 03/01/18 05:59 Glucose (Glucose Chew Tab) 4-8 Tablets 4 Tabl... UD PRN PO 01/30/18 06:00 03/01/18 05:59 Dextrose (Dextrose 50% 50ML Syringe) 25-50ML 25ML FOR ... UD PRN IV 01/30/18 06:00 03/01/18 05:59 Glucagon (Glucagon Inj) 1 mg UD PRN IM 01/30/18 06:00 03/01/18 05:59 Carbohydrates (Carbohydrates For Hypoglycemia) 15-30 GRAMS 15 grams if BSG 54-69... UD PRN PO 01/30/18 06:00 03/01/18 05:59 Tramadol HCl (Ultram Tab) 50 mg Q4H PRN PO 01/30/18 09:15 03/01/18 09:14 02/01/18 23:46 50 MG Magnesium Oxide (Mag-Ox Tab) 400 mg BID PO 01/31/18 20:00 03/02/18 19:59 02/02/18 07:49 400 MG Clonidine HCl (Catapres Tab) 0.1 mg Q8H PRN PO 02/01/18 12:00 03/03/18 11:59 Vancomycin HCl 1250 mg/Sodium Chloride 275 ml @ 125 mls/hr Q14H IV 02/02/18 08:00 02/09/18 11:59 02/02/18 07:49 125 MLS/HR Objective Vital Signs Date Time Temp Pulse Resp B/P (MAP) Pulse Ox O2 Delivery O2 Flow Rate FiO2 02/02/18 10:43 Room Air 02/02/18 07:34 36.6 64 18 116/72 (87) 98 Room Air 02/01/18 23:10 Room Air 02/01/18 22:50 36.6 56 18 137/75 (95) 97 Room Air 02/01/18 19:45 Room Air 02/01/18 16:00 Room Air Physical Exam General Appearance: WD/WN, no apparent distress Eyes: normal inspection, EOMI, sclerae normal ENT: normal ENT inspection, pharynx normal Neck: supple, no adenopathy, thyroid normal, trachea midline Respiratory/Chest: chest non-tender, lungs clear, normal breath sounds, no respiratory distress Cardiovascular: regular rate, rhythm, no gallop, no murmur Abdomen: normal bowel sounds, non tender, soft, no organomegaly Extremities: non-tender, no pedal edema, no calf tenderness Neurologic/Psychiatric: alert, normal mood/affect, oriented x 3 Skin: normal color, no rash, + pertinent finding (Right foot cellulitis improving) Lymphatic: no adenopathy Laboratory Results Last 24 Hours Test 02/01/18 16:34 02/01/18 17:35 02/01/18 19:56 02/02/18 05:49 Bedside Glucose 224 mg/dl 165 mg/dl Vancomycin Level Trough 10.3 mcg/ml Creatinine 1.24 mg/dl Est Creatinine Clear Calc Drug Dose 52.8 ml/min Estimated GFR () 67.4 Estimated GFR (Non- 58.1 Test 02/02/18 07:42 02/02/18 11:34 Bedside Glucose 202 mg/dl 203 mg/dl Assessment and Plan 72-year-old diabetic male with cellulitis of his right foot, clinically responding to IV vancomycin. We will continue vancomycin pending final blood culture results, likely will require only another day or 2 of IV antibiotics. Will follow.
[2018-02-02 16:00] VITALS: O2SAT 98
[2018-02-02] MEDS ORDERED: CEPHALEXIN MONOHYDRATE 500 MG CAP PO ONE (17:00)
[2018-02-02] MEDS ORDERED: DXY100 PO (17:03)
[2018-02-02] MEDS ORDERED: CEPH500C2 PO (17:03)
--- NOTE | 2018-02-02 17:05 | Discharge Instructions ---
Discharge Instructions Date of Service Feb 02, 2018. Admission Reason for Admission: Cellulitis Discharge Discharge Diagnosis / Problem: RIGHT FOOT CELLULITIS Discharge Goals Goal(s): Decrease discomfort, Improve function, Increase independence, Improve disease control, Therapeutic intervention Activity Recommendations Activity Limitations: resume your previous activity . Instructions / Follow-Up Instructions / Follow-Up HOSPITAL FOLLOW UP : 02/06/2018 11:00 AM Joe Poole MD Family [facility] NEEDS REFERRAL FOR DIABETIC CLINIC AND NUTRITION FOR DIABETES MANAGEMENT Current Hospital Diet Patient's current hospital diet: Diabetes Type 2 Diet Discharge Diet Recommended Diet: Diabetes Type 2 Diet Pending Studies Studies pending at discharge: no Laboratory Results Hemoglobin A1c Test 01/30/18 03:35 Range/Units Estimated Average Glucose 229 mg/dl Hemoglobin A1c 9.6 H 4.5-5.6 % Medical Emergencies . Who to Call and When: Medical Emergencies: If at any time you feel your situation is an emergency, please call 911 immediately. . Non-Emergent Contact Non-Emergency issues call your: Primary Care Provider . . "Provider Documentation" section prepared by Angela Lorenzo. .
[2018-02-02] MEDS ORDERED: KFL250 PO (18:29)
[2018-02-02] MEDS: DOXYCYCLINE HYCLATE 100 MG CAP PO SCH (21:07)
[2018-02-02] MEDS: CEPHALEXIN MONOHYDRATE 250 MG CAP PO SCH (21:07)
[2018-02-02 22:59] VITALS: BP 157/76; PULSE 52; TEMP 36.8; O2SAT 98
[2018-02-03 06:51] LABS: CREATININE 1.36 mg/dl (0.60-1.40)
[2018-02-03 07:50] VITALS: BP 132/76; PULSE 79; TEMP 36.8; O2SAT 99
[2018-02-03] MEDS: DOXYCYCLINE HYCLATE 100 MG CAP PO SCH (08:43)
[2018-02-03] MEDS: CEPHALEXIN MONOHYDRATE 250 MG CAP PO SCH (08:43)
[2018-02-03] MEDS: MAGNESIUM OXIDE 400 MG TAB PO SCH (08:43)
[2018-02-03] MEDS: INSULIN ASPART 100 UNITS/ML 3 ML PEN SC SCH (08:45)
[2018-02-03] MEDS: INSULIN GLARGINE SOLOSTAR 100 UNITS/ML 3 ML PEN SC SCH (08:46)
--- NOTE | 2018-02-03 10:53 | Progress Note ---
Internal Med Progress Note Date of Service: Feb 03, 2018. Provider Documentation: SUBJECTIVE: Seen and examined at bedside Doing well today Right foot erythema, swelling much improved Denies chest pain, SOB, dizziness Eager to get discharged No other complaints OBJECTIVE: Vital Signs-as noted below Physical Exam: General Appearance:Moderately built and nourished, no apparent distress Head: normocephalic, Atraumatic Eyes: normal inspection, EOMI, PERRL Neck: supple, Trachea midline Respiratory/Chest: Normal breath sounds, CTA Cardiovascular: S1, S2, No murmur Abdomen/GI:Soft, Non tender, Bowel sounds present Extremities/Musculoskelatal:normal inspection, no edema, R foot erythema swelling improved Neurologic/Psych:AAOX3, grossly no focal neurological deficits Skin: normal color, warm Lab data as noted below. ASSESSMENT & PLAN: Right Foot Cellulitis Foot X ray: Mild soft tissue swelling within the first and second toes. No underlying bony abnormality. Clinically improved IV Abx transitioned to PO Keflex and Doxycycline Blood Cultures: No growth ID on board DM II Poorly controlled hemoglobin A1c 9 Admits to drinking lot of sweet tea when on Vacation to [place] recently Counselled on diet Continue home meds upon discharge referral to diabetic clinic as outpatient Hyponatremia S/P IV fluids Resolved Code Status Full code Disposition discharge home today Medicine follow-up with Dr. Poole Vital Signs: Date Time Temp Pulse Resp B/P (MAP) Pulse Ox O2 Delivery O2 Flow Rate FiO2 02/03/18 07:50 36.8 79 18 132/76 (94) 99 02/02/18 22:59 36.8 52 20 157/76 (103) 98 Room Air 02/02/18 20:00 Room Air 02/02/18 16:00 98 Room Air Lab Results: Results Past 24 Hours Test 02/02/18 11:34 02/02/18 16:52 02/02/18 20:45 02/03/18 06:04 Range/Units Bedside Glucose 203 180 270 70-99 mg/dl Creatinine 1.36 0.60-1.40 mg/dl Est Creatinine Clear Calc Drug Dose 48.2 ml/min Estimated GFR () 60.2 Estimated GFR (Non- 52.0 Test 02/03/18 07:42 Range/Units Bedside Glucose 241 70-99 mg/dl
--- NOTE | 2018-02-03 10:54 | Discharge Summary ---
Discharge Summary Date of Service Feb 03, 2018. Discharge Summary Admission Date: Jan 30, 2018 at 05:14 Discharge Date: Feb 03, 2018 Discharge Disposition: Home Principal Diagnosis: RIGHT FOOT CELLULITIS Procedures: Right foot X ray: Mild soft tissue swelling within the first and second toes. No underlying bony abnormality. Consultations: ID Pending Studies/Follow-Up: HOSPITAL FOLLOW UP : 02/06/2018 11:00 AM Joe Poole MD Family Practice [facility] NEEDS REFERRAL FOR DIABETIC CLINIC AND NUTRITION FOR DIABETES MANAGEMENT Medication Reconciliation New Medications: Doxycycline Hyclate (Doxycycline Hyclate) 100 Mg Cap 1 CAP PO BID for 7 Days, #10 CAP Cephalexin Monohydrate (Cephalexin) 250 Mg Cap 250 MG PO QID for 7 Days, #28 CAP Continued Medications: Glipizide (Glucotrol) 5 Mg Tab 2.5 MG PO BID, TAB Metformin Hcl (Glucophage) 850 Mg Tab 850 MG PO BID, TAB Admission Information HPI (per Admitting provider): CHIEF COMPLAINT: Right foot cellulitis. HISTORY OF PRESENT ILLNESS: This is a 72-year-old male with past medical history significant for type 2 diabetes, comes because of right foot cellulitis. The patient just drove from [place] on Friday. After he came in he noticed some erythema in his second toe region extending to his dorsal aspect of his right foot. He went and saw his family doctor and was prescribed Keflex. He took a couple of doses, but the erythema was increasing in size and is spreading, so he came to the ER. Denies any fever, chills. Resting comfortably, hemodynamically stable. Denies any headaches, no blurred vision, no dizziness, no earache, no runny nose, no sore throat, no difficulty swallowing. No cough, no fever, no chills, no shortness of breath, no chest pain, no nausea, no vomiting, no abdominal pain. Normal bowel and bladder movements. Appetite is okay. Having lot of pain in his right foot region and is limping while walking. Physical Exam (per Admitting): GENERAL: Patient is of moderate built, not in distress. VITAL SIGNS: Temperature 36.4, pulse 64, respiratory rate 18, blood pressure 172/100, oxygen 98% on room air. HEENT: No pallor, no icterus. Pupils equal, round, reactive to light. NECK: No JVD, no neck masses, no carotid bruits. CARDIOVASCULAR: S1, S2 heard, regular rate and rhythm, no murmur, no gallop. RESPIRATORY SYSTEM: Clear to auscultation bilaterally. No wheezing, no crackles. ABDOMEN: Soft, bowel sounds present. Nontender. No distention. CENTRAL NERVOUS SYSTEM: Cranial nerves II-XII grossly intact. Nonfocal. EXTREMITIES: Right foot erythema seen extending from the right second toe to dorsal aspect of the foot. Hospital Course Right Foot Cellulitis Foot X ray: Mild soft tissue swelling within the first and second toes. No underlying bony abnormality. Clinically improved IV Abx transitioned to PO Keflex and Doxycycline Blood Cultures: No growth ID on board DM II Poorly controlled hemoglobin A1c 9 Admits to drinking lot of sweet tea when on Vacation to [place] recently Counselled on diet Continue home meds upon discharge referral to diabetic clinic as outpatient Hyponatremia S/P IV fluids Resolved Code Status Full code Disposition discharge home today Medicine follow-up with Dr. Poole Total time spent on discharge = 34 minutes This includes examination of the patient, discharge planning, medication reconciliation, and communication with other providers. Discharge Instructions Discharge Instructions Date of Service Feb 02, 2018. Admission Reason for Admission: Cellulitis Discharge Discharge Diagnosis / Problem: RIGHT FOOT CELLULITIS Discharge Goals Goal(s): Decrease discomfort, Improve function, Increase independence, Improve disease control, Therapeutic intervention Activity Recommendations Activity Limitations: resume your previous activity . Instructions / Follow-Up Instructions / Follow-Up HOSPITAL FOLLOW UP : 02/06/2018 11:00 AM Joe Poole MD Family Practice [facility] NEEDS REFERRAL FOR DIABETIC CLINIC AND NUTRITION FOR DIABETES MANAGEMENT Current Hospital Diet Patient's current hospital diet: Diabetes Type 2 Diet Discharge Diet Recommended Diet: Diabetes Type 2 Diet Pending Studies Studies pending at discharge: no Laboratory Results Hemoglobin A1c Test 01/30/18 03:35 Range/Units Estimated Average Glucose 229 mg/dl Hemoglobin A1c 9.6 H 4.5-5.6 % Medical Emergencies . Who to Call and When: Medical Emergencies: If at any time you feel your situation is an emergency, please call 911 immediately. . Non-Emergent Contact Non-Emergency issues call your: Primary Care Provider . . "Provider Documentation" section prepared by Angela Lorenzo. . <Electronically signed by Angela Lorenzo MD> Signed: 02/02/18 1492 Signed: The status of this report is Signed * If report status is Draft, the document has not been finalized by the responsible provider.
[2018-02-03 11:08] VITALS: BP 132/76; PULSE 79; TEMP 36.8; O2SAT 99
[2018-02-04] MEDS ORDERED: VANCOMYCIN TROUGH ONE (01:30)
== END 2018-02-03 11:39 | disposition home or self-care (01) | DRG 638 ==
LOC: C.EDB 02:41 → C.4E 05:14 → ENRESERV 05:27
PROVIDERS: ADMIT Hospitalist; ATTEND Internal Medicine
DX: E11.628 Type 2 diabetes mellitus with other skin complications (principal); L03.115 Cellulitis of right lower limb; E87.1 Hypo-osmolality and hyponatremia; L03.031 Cellulitis of right toe; E11.65 Type 2 diabetes mellitus with hyperglycemia; Z51.81 Encounter for therapeutic drug level monitoring; Z79.84 Long term (current) use of oral hypoglycemic drugs; Z79.82 Long term (current) use of aspirin